=== PATIENT | female | born 1980 | race Caucasian/White ===

== ENCOUNTER 2017-10-12 19:52 | Emergency (ER) | payer MEDICAID, MEDICARE ==
[~2017-10-12] VITALS: Ht 152.4 cm; Wt 99.8 kg
[2017-10-12 19:55] VITALS: BP 136/84
[2017-10-12 20:00] VITALS: BP 136/84
--- NOTE | 2017-10-12 20:00 | NUR ---
PATIENT PRESENTS TO ED WITH C/O SPOTTING X 2 DAYS. PT STATES 8 WEEKS . PT SEEN AT [facility] 3 WEEKS AGO. PT DENIES N/V/D; SKIN IS PINK/WARM/DRY; AAOX4 WITH EVEN AND STEADY GAIT; LUNGS CLEAR BL; HR EVEN AND REGULAR; PT DENIES ANY FEVER, CP, SOB, OR COUGH AT THIS TIME; PATIENT STATES PAIN OF 4/10 AT THIS TIME; VSS; PATIENT POSITIONED FOR COMFORT; HOB ELEVATED; BEDRAILS UP X2; BED DOWN. ER MD MADE AWARE OF PT STATUS.
[2017-10-12 20:54] LABS: BASOPHILS % (AUTO) 0.4 % (0.0-2.0); EOSINOPHILS # (AUTO) 0.2 K/uL (0-0.4); EOSINOPHILS % (AUTO) 2.8 % (0.0-4.0); HEMATOCRIT 40.7 % (36-48); HEMOGLOBIN 13.5 g/dL (12.0-16.0); LYMPHOCYTES # (AUTO) 2.2 K/uL (2.5-16.5); LYMPHOCYTES % (AUTO) 27.8 % (20.5-51.1); MEAN CORPUSCULAR HEMOGLOBIN 31 pg (27-31); MEAN CORPUSCULAR HGB CONC 33 g/dL (33-37); MEAN CORPUSCULAR VOLUME 92.4 fL (80-94); MONOCYTES # (AUTO) 0.4 K/uL (0.8-1.0); MONOCYTES % (AUTO) 4.8 % (1.7-9.3); NEUTROPHILS # (AUTO) 5.2 K/uL (1.8-7.7); NEUTROPHILS % (AUTO) 64.2 % (42.2-75.2); PLATELET COUNT (AUTO) 197 K/uL (140-450); RED CELL DISTRIBUTION WIDTH 13.4 % (11.6-13.7); WHITE BLOOD COUNT (AUTO) 8.1 K/uL (4.8-10.8)
--- NOTE | 2017-10-12 21:10 | NUR ---
Patient appears to be resting comfortably in bed. Vital Signs within normal limits. Respirations even and unlabored.
[2017-10-12 21:18] LABS: APPEARANCE,URINE CLEAR (CLEAR); BILIRUBIN,URINE NEGATIVE (NEGATIVE); BLOOD, URINE 2+ (NEGATIVE); LEUKOCYTE ESTERASE ,URINE NEGATIVE (NEGATIVE); NITRITE, URINE NEGATIVE (NEGATIVE); UGLUCOSE NEGATIVE (NEGATIVE)
[2017-10-12 21:18] LABS: ALBUMIN 3.6 g/dL (3.4-5.0); ANION GAP 13.2 (8-16); CARBON DIOXIDE 26.4 mmol/L (21-32); CREATININE 0.8 mg/dL (0.6-1.3); POTASSIUM 3.6 mmol/L (3.5-5.1); TOTAL BILIRUBIN 0.4 mg/dL (0.0-1.0)
--- NOTE | 2017-10-12 21:19 | NUR ---
PT SENT TO U/S VIA W/C WITH CÜR [id number]
[2017-10-12 21:23] LABS: COLOR,URINE STRAW (YELLOW)
[2017-10-12 21:51] LABS: RBC,URINE 0-5 (RARE) /HPF (0-5); WBC,URINE 0-5 (RARE) /HPF (0-5)
--- NOTE | 2017-10-12 23:49 | NUR ---
Patient discharged with v/s stable. Written and verbal after care instructions given and explained. Patient verbalized understanding. Ambulatory with steady gait. All questions addressed prior to discharge. Advised to follow up with PMD. HANDOUT FOR DR Betzaida SHER AND COPY OF US GIVEN TO PT.
== END 2017-10-12 23:49 | disposition home or self-care (01) ==
LOC: MED 19:52
DX: O03.9 Complete or unspecified spontaneous abortion without complication (principal); O02.0 Blighted ovum and nonhydatidiform mole; Z3A.08 8 weeks gestation of pregnancy; E11.9 Type 2 diabetes mellitus without complications
CPT/HCPCS: 36415; 76817; 80053; 81001; 81025; 82150; 83690; 84702; 85025; 86900; 86901; 99285; Q0092

== ENCOUNTER 2017-10-21 19:20 | Emergency (ER) | payer MEDICARE ==
[~2017-10-21] VITALS: Ht 165.1 cm; Wt 99.8 kg
[2017-10-21 19:26] VITALS: BP 141/81
--- NOTE | 2017-10-21 19:38 | NUR ---
36YO F PATIENT PRESENTS TO ED WITH VAGINAL BLEEDING X2DAYS WITH AN INCREASE OF BLEEDING IN THE LAST DAY . PT STATES PAD CHANGES X2 PER HR, PT STATE PAIN OF 7/ 10 LBP AND VAGINAL . . DENIES N/V/D; SKIN IS PINK/WARM/DRY; AAOX4 WITH EVEN AND STEADY GAIT; LUNGS CLEAR BL; HR EVEN AND REGULAR; PT DENIES ANY FEVER, CP, SOB, OR COUGH AT THIS TIME; VSS; PATIENT POSITIONED FOR COMFORT; HOB ELEVATED; BEDRAILS UP X2; BED DOWN. DR HAMM MADE AWARE OF PT STATUS.
--- NOTE | 2017-10-21 19:40 | NUR ---
Ultrasound at bedside.
[2017-10-21 20:25] LABS: BASOPHILS # (AUTO) 0.1 K/uL (0.00-0.22); EOSINOPHILS # (AUTO) 0.2 K/uL (0-0.4); EOSINOPHILS % (AUTO) 2.9 % (0.0-4.0); HEMATOCRIT 38.7 % (36-48); HEMOGLOBIN 12.8 g/dL (12.0-16.0); LYMPHOCYTES # (AUTO) 2.5 K/uL (2.5-16.5); LYMPHOCYTES % (AUTO) 29.5 % (20.5-51.1); MEAN CORPUSCULAR HEMOGLOBIN 31 pg (27-31); MEAN CORPUSCULAR HGB CONC 33 g/dL (33-37); MEAN CORPUSCULAR VOLUME 92.8 fL (80-94); MONOCYTES # (AUTO) 0.4 K/uL (0.8-1.0); NEUTROPHILS # (AUTO) 5.3 K/uL (1.8-7.7); NEUTROPHILS % (AUTO) 61.6 % (42.2-75.2); PLATELET COUNT (AUTO) 197 K/uL (140-450); RED BLOOD CELL COUNT(AUTO) 4.17 MIL/uL (4.20-5.40); RED CELL DISTRIBUTION WIDTH 13.4 % (11.6-13.7); WHITE BLOOD COUNT (AUTO) 8.5 K/uL (4.8-10.8)
[2017-10-21 20:33] LABS: BILIRUBIN,URINE NEGATIVE (NEGATIVE); BLOOD, URINE 3+ (NEGATIVE); PH,URINE 5.5 (5.0-9.0); UGLUCOSE NEGATIVE (NEGATIVE)
[2017-10-21 20:35] LABS: ANION GAP 13.1 (8-16); APPEARANCE,URINE BLOODY (CLEAR); CARBON DIOXIDE 26.7 mmol/L (21-32); COLOR,URINE BLOODY (YELLOW); CREATININE 0.8 mg/dL (0.6-1.3); LEUKOCYTE ESTERASE ,URINE NEGATIVE (NEGATIVE); NITRITE, URINE NEGATIVE (NEGATIVE); POTASSIUM 3.8 mmol/L (3.5-5.1)
[2017-10-21 20:38] LABS: ALBUMIN 3.3 g/dL (3.4-5.0); TOTAL BILIRUBIN 0.3 mg/dL (0.0-1.0)
[2017-10-21 20:41] LABS: RBC,URINE TOO NUMEROUS TO COUN /HPF (0-5); WBC,URINE 0-5 (RARE) /HPF (0-5)
[2017-10-21 21:46] VITALS: BP 138/80
--- NOTE | 2017-10-21 21:46 | NUR ---
Patient discharged with v/s stable. Written and verbal after care instructions given and explained BY DR HAMM. Patient verbalized understanding. Ambulatory with steady gait. All questions addressed prior to discharge. Advised to follow up with PMD.
== END 2017-10-21 21:46 | disposition home or self-care (01) ==
LOC: MED 19:20
DX: O03.89 Complete or unspecified spontaneous abortion with other complications (principal); Z98.51 Tubal ligation status
CPT/HCPCS: 36415; 76801; 80053; 81001; 81025; 84702; 85025; 86900; 86901; 99285; Q0092